=== PATIENT | male | born 1995 | race Caucasian/White ===

== ENCOUNTER 2017-02-17 20:01 | Emergency (ER) | payer BC ==
[~2017-02-17] VITALS: Ht 203.2 cm; Wt 111.4 kg
[2017-02-17 20:02] VITALS: TEMP 98.9
[2017-02-17] MEDS ORDERED: SINGULAIR 110 MG/TAB PO (20:43)
[2017-02-17 20:55] VITALS: BP 131/74; PULSE 64
== END 2017-02-17 21:10 | disposition home or self-care (01) ==
LOC: COL.ER 20:01
DX: T18.128A Food in esophagus causing other injury, initial encounter (principal); X58.XXXA Exposure to other specified factors, initial encounter